=== PATIENT | male | born 1990 | race American Indian/Alaskan Native ===

== ENCOUNTER 2019-09-08 23:53 | Emergency (ER) | payer SELFPAY ==
[2019-09-09 01:23] LABS: Bacteria,Urine 1+ /HPF (Negative); Bilirubin,Urine NEG (Negative); Blood,Urine NEG (Negative); Color,Urine Yellow (Yellow); Mucus,Urine 3+ /HPF
[2019-09-09 01:39] LABS: Basophils % (Auto) 0.5 % (0.0-1.8); Eosinophils # (Auto) 0.1 K/mm3 (0.0-0.4); Eosinophils % (Auto) 1.4 % (0.0-4.3); Hematocrit 43.8 % (35.5-45.6); Hemoglobin 14.6 gm/dl (11.8-15.2); Lymphocytes % (Auto) 35.9 % (13.4-35.0); Mean Corpuscular HGB Conc 33 % (32-34); Mean Corpuscular Volume 96 fl (84-94); Monocytes # (Auto) 0.4 K/mm3 (0.0-0.8); Monocytes % (Auto) 6.4 % (0.0-7.3); Platelet Count 230 K/mm3 (140-440); Red Blood Count 4.59 M/mm3 (3.65-5.03); Red Cell Distribution Width 13.2 % (13.2-15.2)
[2019-09-09 01:47] LABS: Benzodiazepines Screen,Urine PRESUMPTIVE NEGATIVE; Cocaine Screen,Urine PRESUMPTIVE NEGATIVE; Methadone Screen,Urine PRESUMPTIVE NEGATIVE; Opiate Screen,Urine PRESUMPTIVE NEGATIVE
[2019-09-09 01:58] LABS: Amphetamine Screen,Urine PRESUMPTIVE POSITIVE; Cannabinoid Screen,Urine PRESUMPTIVE POSITIVE
[2019-09-09 02:03] LABS: BUN/Creatinine Ratio 12; Blood Urea Nitrogen 11 mg/dL (9-20); Calcium 9.6 mg/dL (8.4-10.2); Hemolysis Index 17
[2019-09-09] MEDS ORDERED: POTASSIUM CHLORIDE ER 20 MEQ TAB PO ONE (02:29)
--- NOTE | 2019-09-09 02:29 | Emergency Department Report ---
HPI - [facility] HPI: [facility] The patient is a 29-year-old male presenting with a chief complaint of depression. Patient states he's felt depressed for one day. The patient states she's been out of his psychiatric medication for several months. Patient denies suicidal or homicidal ideation. Patient denies auditory or visual hallucinations. Location: [See above] Duration: [See above] Quality: [See above] Severity: [See above] Timing: [See above] Context: [See above] Modifying factors: [See above] Associated signs and symptoms: [see above] <LUIS M BURT - Last Filed: 09/09/19 02:26> <LELE MARK - Last Filed: 09/09/19 20:11> - General Chief Complaint: Psych Time Seen by Provider: 09/09/19 02:13 ED Past Medical Hx - Past Medical History Previous Medical History?: Yes Hx Psychiatric Treatment: Yes (anxiety, ADD, ADHD, depression) - Surgical History Past Surgical History?: Yes Additional Surgical History: oral surgery - Family History Family history: no significant - Social History Smoking Status: Current Every Day Smoker (3-4 cigarettes daily) Substance Use Type: Marijuana <LUIS M BURT - Last Filed: 09/09/19 02:26> ED Review of Systems ROS: Stated complaint: ANXIETY MEDS Other details as noted in HPI Constitutional: no symptoms reported Eyes: denies: eye pain ENT: denies: throat pain Respiratory: no symptoms reported Cardiovascular: denies: chest pain Endocrine: no symptoms reported Gastrointestinal: denies: abdominal pain Genitourinary: denies: dysuria Musculoskeletal: denies: back pain Neurological: denies: headache Psychiatric: anxiety, depression. denies: auditory hallucinations, visual hallucinations, homicidal thoughts, suicidal thoughts <LUIS M BURT - Last Filed: 09/09/19 02:26> ROS: Stated complaint: ANXIETY MEDS Other details as noted in HPI <LELE MARK - Last Filed: 09/09/19 20:11> Physical Exam - Physical Exam Vital Signs: Vital Signs 09/08/19 23:58 Temperature 98.5 F Pulse Rate 89 Respiratory 18 Rate Blood Pressure 152/87 O2 Sat by Pulse 100 Oximetry Physical Exam: GENERAL: The patient is well-developed well-nourished male lying on stretcher not appearing to be in acute distress. [] HEENT: Normocephalic. Atraumatic. Extraocular motions are intact. Patient has moist mucous membranes. NECK: Supple. Trachea midline CHEST/LUNGS: Clear to auscultation. There is no respiratory distress noted. HEART/CARDIOVASCULAR: Regular. There is no tachycardia. There is no gallop rub or murmur. ABDOMEN: Abdomen is soft, nontender. Patient has normal bowel sounds. There is no abdominal distention. SKIN: There is no rash. There is no edema. There is no diaphoresis. NEURO: The patient is awake, alert, and oriented. The patient is cooperative. The patient has normal speech MUSCULOSKELETAL: There is no evidence of acute injury. <LUIS M BURT - Last Filed: 09/09/19 02:26> - Physical Exam Vital Signs: Vital Signs 09/08/19 09/09/19 09/09/19 23:58 07:00 13:00 Temperature 98.5 F 98.0 F 98.7 F Pulse Rate 89 96 H 89 Respiratory 18 18 18 Rate Blood Pressure 152/87 Blood Pressure 138/91 110/72 [Right] O2 Sat by Pulse 100 100 100 Oximetry <LELE MARK - Last Filed: 09/09/19 20:11> ED Course Vital Signs 09/08/19 23:58 Temperature 98.5 F Pulse Rate 89 Respiratory 18 Rate Blood Pressure 152/87 O2 Sat by Pulse 100 Oximetry <LUIS M BURT - Last Filed: 09/09/19 02:26> Vital Signs 09/08/19 09/09/19 09/09/19 23:58 07:00 13:00 Temperature 98.5 F 98.0 F 98.7 F Pulse Rate 89 96 H 89 Respiratory 18 18 18 Rate Blood Pressure 152/87 Blood Pressure 138/91 110/72 [Right] O2 Sat by Pulse 100 100 100 Oximetry <LELE MARK - Last Filed: 09/09/19 20:11> ED Medical Decision Making - Lab Data Result diagrams: 09/09/19 01:25 09/09/19 01:25 Laboratory Tests 09/09/19 09/09/19 09/09/19 00:44 00:44 01:25 WBC RBC Hgb Hct MCV MCH MCHC RDW Plt Count Lymph % (Auto) Baker % (Auto) Eos % (Auto) Baso % (Auto) Lymph # Baker # Eos # Baso # Seg Neutrophils % Seg Neutrophils # Sodium Potassium Chloride Carbon Dioxide Anion Gap BUN Creatinine Estimated GFR BUN/Creatinine Ratio Glucose Calcium Urine Color Yellow Urine Turbidity Clear Urine pH 5.0 Ur Specific [place] 1.031 H Urine Protein 30 mg/dl Urine Glucose (UA) Neg Urine Ketones Tr Urine Blood Neg Urine Nitrite Neg Urine Bilirubin Neg Urine Urobilinogen 4.0 Ur Leukocyte Esterase Neg Urine WBC (Auto) 3.0 Urine RBC (Auto) 7.0 U Epithel Cells (Auto) < 1.0 Urine Bacteria (Auto) 1+ Urine Mucus 3+ Salicylates < 0.3 L Urine Opiates Screen Presumptive negative Urine Methadone Screen Presumptive negative Acetaminophen Ur Barbiturates Screen Presumptive negative Ur Phencyclidine Scrn Presumptive negative Ur Amphetamines Screen Presumptive positive U Benzodiazepines Scrn Presumptive negative Urine Cocaine Screen Presumptive negative U Marijuana (THC) Screen Presumptive positive Drugs of Abuse Note Disclamer 09/09/19 09/09/19 09/09/19 01:25 01:25 01:25 WBC 5.7 RBC 4.59 Hgb 14.6 Hct 43.8 MCV 96 H MCH 32 MCHC 33 RDW 13.2 Plt Count 230 Lymph % (Auto) 35.9 H Baker % (Auto) 6.4 Eos % (Auto) 1.4 Baso % (Auto) 0.5 Lymph # 2.0 Baker # 0.4 Eos # 0.1 Baso # 0.0 Seg Neutrophils % 55.8 Seg Neutrophils # 3.2 Sodium 139 Potassium 3.3 L Chloride 100.9 Carbon Dioxide 22 Anion Gap 19 BUN 11 Creatinine 0.9 Estimated GFR > 60 BUN/Creatinine Ratio 12 Glucose 96 Calcium 9.6 Urine Color Urine Turbidity Urine pH Ur Specific [place] Urine Protein Urine Glucose (UA) Urine Ketones Urine Blood Urine Nitrite Urine Bilirubin Urine Urobilinogen Ur Leukocyte Esterase Urine WBC (Auto) Urine RBC (Auto) U Epithel Cells (Auto) Urine Bacteria (Auto) Urine Mucus Salicylates Urine Opiates Screen Urine Methadone Screen Acetaminophen < 5.0 L Ur Barbiturates Screen Ur Phencyclidine Scrn Ur Amphetamines Screen U Benzodiazepines Scrn Urine Cocaine Screen U Marijuana (THC) Screen Drugs of Abuse Note - Differential Diagnosis depression <LUIS M BURT K - Last Filed: 09/09/19 02:26> - Lab Data Result diagrams: 09/09/19 01:25 09/09/19 01:25 - Medical Decision Making Patient is 29 years old male with history of depression and posttraumatic stress disorder and a ADHD. Patient presented to the ER complaining of depression for one day. Patient denied any suicidal or homicidal ideation. Patient has been assessed and evaluated by our psychiatric team and advised patient can be discharged home. I personally examined the patient. Patient still denying any suicidal or homicidal ideation. No visual or auditory hallucination. Patient i s medically and psychiatrically stable for discharge. <LELE MARK - Last Filed: 09/09/19 20:11> Critical care attestation.: If time is entered above; I have spent that time in minutes in the direct care of this critically ill patient, excluding procedure time. <LUIS M BURT - Last Filed: 09/09/19 02:26> Critical care attestation.: If time is entered above; I have spent that time in minutes in the direct care of this critically ill patient, excluding procedure time. <LELE MARK - Last Filed: 09/09/19 20:11> ED Disposition <LUIS M BURT - Last Filed: 09/09/19 02:26> Is pt being admited?: No <LELE MARK - Last Filed: 09/09/19 20:11> Clinical Impression: Depression Disposition: DC-01 TO HOME OR SELFCARE Condition: Stable Instructions: Depression (ED), Suicide Prevention for Adults (ED) Referrals: PRIMARY CARE,MD [Primary Care Provider] - 3-5 Days
[2019-09-09] MEDS ORDERED: NICOTINE 14 MG/24 HR PATCH TD ONE (19:53)
[2019-09-09 20:12] VITALS: BP 111/73
== END 2019-09-09 20:24 | disposition home or self-care (01) ==
LOC: ED 23:53
DX: F32.9 Major depressive disorder, single episode, unspecified (principal); F41.9 Anxiety disorder, unspecified; F90.9 Attention-deficit hyperactivity disorder, unspecified type; F17.200 Nicotine dependence, unspecified, uncomplicated; F12.10 Cannabis abuse, uncomplicated
CPT/HCPCS: 36415; 80048; 80307; 80320; 81001; 85025; G0480

== ENCOUNTER 2019-10-25 19:45 | Emergency (ER) | payer SELFPAY ==
[2019-10-25] MEDS ORDERED: ALPRAZolam 0.5 MG TAB PO ONE (20:03)
--- NOTE | 2019-10-25 20:04 | Emergency Department Report ---
ED General Adult HPI - General Chief complaint: Weakness Stated complaint: WEAKNESS Time Seen by Provider: 10/25/19 19:56 Source: patient, EMS ( EMS documentation not available at time of chart dictation ), RN notes reviewed, old records reviewed Mode of arrival: Stretcher Limitations: Other (Patient is somewhat disorganized, and appears to be intoxicated) - History of Present Illness Initial comments: The patient is a 29-year-old gentleman. This patient is not known to myself previously. He apparently has a history of anxiety, depression, ADD, ADHD The patient was brought to the hospital by EMS. Patient reports that he was at a alliance party, and took a bong hit recreationally, and feels "off and weak." He endorses generalized muscle cramps, audio hallucinations. He denies physical pain. He is not homicidal or suicidal. He denies headache, neck pain, chest pain, abdominal pain and shortness of breath. He reports that he has not consumed recreational drugs with these people before. He reports that he feels "off." -: Gradual, hour(s) Severity scale (0 -10): 0 Consistency: constant Improves with: none Worsens with: none - Related Data Allergies Allergy/AdvReac Type Severity Reaction Status Date / Time No Known Allergies Allergy Verified 09/09/19 00:02 ED Review of Systems ROS: Stated complaint: WEAKNESS Other details as noted in HPI Constitutional: malaise Eyes: as per HPI ENT: as per HPI Respiratory: see HPI Cardiovascular: as per HPI Endocrine: see HPI Gastrointestinal: as per HPI Genitourinary: as per HPI Musculoskeletal: as per HPI Skin: as per HPI Neurological: as per HPI Psychiatric: as per HPI Hematological/Lymphatic: as per HPI ED Past Medical Hx - Past Medical History Previous Medical History?: Yes Hx Psychiatric Treatment: Yes (anxiety, ADD, ADHD, depression) - Surgical History Additional Surgical History: oral surgery - Social History Smoking Status: Current Every Day Smoker Substance Use Type: Methamphetamines ED Physical Exam - General Limitations: Other (Patient appears to be intoxicated, distracted, and somewhat disorganized) General appearance: anxious - Head Head exam: Present: atraumatic, normocephalic - Eye Eye exam: Present: normal appearance, PERRL, EOMI, other (Visual acuity intact to finger counting and color perception at a close distance). Absent: nystagmus - ENT ENT exam: Present: normal exam, normal orophraynx, mucous membranes moist, normal external ear exam - Neck Neck exam: Present: normal inspection, full ROM. Absent: tenderness, meningismus - Respiratory Respiratory exam: Present: normal lung sounds bilaterally. Absent: respiratory distress - Cardiovascular Cardiovascular Exam: Present: regular rate, normal rhythm, normal heart sounds. Absent: bradycardia, tachycardia, irregular rhythm, systolic murmur, diastolic murmur, rubs, gallop - GI/Abdominal GI/Abdominal exam: Present: soft. Absent: distended, tenderness, guarding, rebound, rigid, pulsatile mass - Rectal Rectal exam: Present: deferred - Extremities Exam Extremities exam: Present: normal inspection, full ROM, other (2+ pulses noted in the bilateral upper and lower extremities. There is no palpable cord. negative Homans sign. Muscular compartments are soft. The pelvis is stable.). Absent: pedal edema, calf tenderness - Back Exam Back exam: Present: normal inspection, full ROM. Absent: tenderness, CVA tenderness (R), CVA tenderness (L), paraspinal tenderness, vertebral tenderness - Neurological Exam Neurological exam: Present: alert (Patient is alert to name, and location. He does not know the month. He does not know where he lives.), other (There is no facial droop. The tongue is midline. Extraocular movements are intact bilaterally. There is 5 out of 5 strength in bilateral upper and lower extremities. Sensation is intact to light touch bilateral upper and lower extremities. ) - Psychiatric Psychiatric exam: Present: anxious. Absent: homicidal ideation, suicidal ideation - Skin Skin exam: Present: warm, dry, intact, normal color. Absent: rash ED Course Vital Signs 10/25/19 10/25/19 20:00 20:01 Temperature 97.4 F L 97.4 F L Pulse Rate 96 H 96 H Respiratory 16 15 Rate Blood Pressure 127/78 Blood Pressure 127/78 [Left] O2 Sat by Pulse 100 100 Oximetry - Reevaluation(s) Reevaluation #1: 10/25/19 20:46 Differential diagnosis, including but not limited to: Intoxication, medical clearance, disorganized behavior Assessment and plan: 29-year-old gentleman status post recreational drug consumption, now with disorganized behavior, and mild intoxication. He also appears to be anxious, and endorses some hallucinations which are nonspecific. He is not homicidal or suicidal, he is not especially agitated, he is calm and cooperative. Appropriate screening laboratory studies ordered, EKG ordered, patient placed on ER hold, pending clinical sobriety. Discussed plan of care with patient, who verbalized understanding and is amenable to this plan of care. Of note, patient was able to tell me without difficulty that he has been on Seroquel, Remeron in the past, and that he typically goes up to [facility] for his psychiatric care. Reevaluation #2: 10/26/19 02:10 Patient is reassessed multiple times. He is resting comfortably in her stretcher, and in no acute distress. I have woken the patient up from his nap, he is now alert and oriented to name, month and location He walks with a steady gait and he is clinically sober. He denies physical pain at this time. He is not clinically intoxicated at this time. Patient is counseled to avoid recreational consumption of marijuana and illicit drugs. ED Medical Decision Making - Lab Data Result diagrams: 10/25/19 20:53 10/25/19 20:22 Vital Signs 10/25/19 10/25/19 20:00 20:01 Temperature 97.4 F L 97.4 F L Pulse Rate 96 H 96 H Respiratory 15 15 Rate Blood Pressure 127/78 Blood Pressure 127/78 [Left] O2 Sat by Pulse 100 100 Oximetry Vital Signs 10/25/19 10/25/19 20:00 20:01 Temperature 97.4 F L 97.4 F L Pulse Rate 96 H 96 H Respiratory 15 15 Rate Blood Pressure 127/78 Blood Pressure 127/78 [Left] O2 Sat by Pulse 100 100 Oximetry Lab Results 10/25/19 10/25/19 10/25/19 Range/Units :: 20: Hgb (11.8-15.2) gm/dl Hct (35.5-45.6) % Plt Count (140-440) K/mm3 Sodium 142 (137-145) mmol/L Potassium 4.5 (3.6-5.0) mmol/L Chloride 102.9 (98-107) mmol/L Carbon Dioxide 23 (22-30) mmol/L Anion Gap 21 mmol/L BUN 19 (9-20) mg/dL Creatinine 1.0 (0.8-1.5) mg/dL Estimated GFR > 60 ml/min BUN/Creatinine Ratio 19 % Glucose 87 (75-100) mg/dL Calcium 10.0 (8.4-10.2) mg/dL Magnesium 2.20 (1.7-2.3) mg/dL Total Bilirubin 1.20 (0.1-1.2) mg/dL AST 20 (5-40) units/L ALT 14 (7-56) units/L Alkaline Phosphatase 75 (35-129) units/L Total Creatine Kinase 270 H (55-170) units/L Total Protein 7.3 (6.3-8.2) g/dL Albumin 5.1 H (3.9-5) g/dL Albumin/Globulin Ratio 2.3 % Salicylates < 0.3 L (2.8-20.0) mg/dL Acetaminophen < 5.0 L (10.0-30.0) ug/mL Plasma/Serum Alcohol (0-0.07) % 10/25/19 10/25/19 Range/Units 20:22 20:53 Hgb 14.6 (11.8-15.2) gm/dl Hct 43.7 (35.5-45.6) % Plt Count 228 (140-440) K/mm3 Sodium (137-145) mmol/L Potassium (3.6-5.0) mmol/L Chloride (98-107) mmol/L Carbon Dioxide (22-30) mmol/L Anion Gap mmol/L BUN (9-20) mg/dL Creatinine (0.8-1.5) mg/dL Estimated GFR ml/min BUN/Creatinine Ratio % Glucose (75-100) mg/dL Calcium (8.4-10.2) mg/dL Magnesium (1.7-2.3) mg/dL Total Bilirubin (0.1-1.2) mg/dL AST (5-40) units/L ALT (7-56) units/L Alkaline Phosphatase (35-129) units/L Total Creatine Kinase (55-170) units/L Total Protein (6.3-8.2) g/dL Albumin (3.9-5) g/dL Albumin/Globulin Ratio % Salicylates (2.8-20.0) mg/dL Acetaminophen (10.0-30.0) ug/mL Plasma/Serum Alcohol < 0.01 (0-0.07) % - EKG Data -: EKG Interpreted by Me EKG shows normal: sinus rhythm Rate: normal - EKG Data When compared to previous EKG there are: previous EKG unavailable 10/25/19 20:48 The EKG shows sinus rhythm, 96 bpm, there is a leftward axis deviation, the QTC is prolonged, there is high left ventricular voltage, CA interval within normal limits, QRS duration 91 ms, the EKG is abnormal, there is no prior for comparison, there is no endorsement of chest pain, it is not consistent with ST elevation myocardial infarction. Critical care attestation.: If time is entered above; I have spent that time in minutes in the direct care of this critically ill patient, excluding procedure time. ED Disposition Clinical Impression: General medical exam Disposition: TO HOME OR SELFCARE Is pt being admited?: No Does the pt Need Aspirin: No Condition: Stable Additional Instructions: Avoid consumption of alcohol, marijuana, and recreational drugs. Follow-up with an outpatient primary care doctor or psychiatrist within the next 5 to [address] or operate motor vehicles until cleared to do so by a primary care doctor. Return to the emergency room right away with new, worsened or different symptoms not present on the initial emergency room evaluation. Referrals: [facility] [Provider Group] - 3-5 Days [facility] [Outside] - 3-5 Days [facility] [Provider Group] - 3-5 Days
[2019-10-25 20:56] LABS: Alanine Aminotransferase 14 units/L (7-56); Albumin 5.1 g/dL (3.9-5); BUN/Creatinine Ratio 19; Blood Urea Nitrogen 19 mg/dL (9-20)
[2019-10-25 21:09] LABS: Hematocrit 43.7 % (35.5-45.6); Hemoglobin 14.6 gm/dl (11.8-15.2)
[2019-10-26 02:21] VITALS: BP 110/68
== END 2019-10-26 02:20 | disposition home or self-care (01) ==
LOC: ED 19:45
DX: R25.2 Cramp and spasm (principal); Z00.00 Encounter for general adult medical examination without abnormal findings; F98.8 Other specified behavioral and emotional disorders with onset usually occurring in childhood and adolescence; F90.9 Attention-deficit hyperactivity disorder, unspecified type; F41.9 Anxiety disorder, unspecified; F32.89 Other specified depressive episodes; F17.200 Nicotine dependence, unspecified, uncomplicated; F15.10 Other stimulant abuse, uncomplicated; Z98.890 Other specified postprocedural states; Z79.899 Other long term (current) drug therapy
CPT/HCPCS: 36415; 80053; 80320; 82550; 83735; 85014; 85018; 85049; 93005; 93010; G0480